=== PATIENT | male | born 1980 | race Caucasian/White ===

== ENCOUNTER 2016-07-01 13:43 | Emergency (ER) | payer OTHER ==
[~2016-07-01] VITALS: Ht 180.3 cm; Wt 90.0 kg
[~2016-07-01 13:43] MED LIST: PHEN12.5 PO; PREV30CA36 PO; Z.0.NO CURRENT MEDS
[2016-07-01] MEDS ORDERED: LORazepam 2 MG/ML VIAL IV PUSH ONE (14:00)
[2016-07-01] MEDS ORDERED: SODIUM CHLORIDE 0.9% FLUSH 5 ML FLUSH IVF PRN (14:00)
[2016-07-01 14:07] VITALS: O2SAT 100
[2016-07-01 14:09] VITALS: BP 150/98; PULSE 118; RESP 14; TEMP 98.4; O2SAT 98
[2016-07-01 14:15] LABS: AUTOMATED NEUTROPHIL # 3.9 TH/MM3 (1.8-7.7); BASOPHIL # 0.2 TH/MM3 (0-0.2); BASOPHIL % 2.5 % (0.0-2.0); EOSINOPHIL % 0.6 % (0.0-4.0); HEMATOCRIT 48.2 % (39.0-51.0); HEMO FLAGS DIFF FINAL; LYMPH % 29.9 % (9.0-44.0); MEAN CELL VOLUME 92.8 FL (80.0-100.0); MEAN CORPUSCULAR HEMOGLOBIN 31.6 PG (27.0-34.0); MEAN CORPUSCULAR HGB CONC 34.1 % (32.0-36.0); MONO % 8.5 % (0.0-8.0); NEUT % 58.5 % (16.0-70.0); PLATELET COUNT 253 TH/MM3 (150-450); RED CELL DISTRIBUTION WIDTH 12.8 % (11.6-17.2); WHITE BLOOD COUNT 6.7 TH/MM3 (4.0-11.0)
--- NOTE | 2016-07-01 14:19 | RADHPO ---
EXAM DATE/TIME: 07/01/2016 14:08 [place] COMPARISON: No previous studies available for comparison. INDICATIONS : Chest pain MEDICAL HISTORY : None. SURGICAL HISTORY : None. ENCOUNTER: Initial ACUITY: 3 days PAIN SCORE: 10/10 LOCATION: Bilateral chest FINDINGS: A single view of the chest demonstrates the lungs to be symmetrically aerated without evidence of mas s, infiltrate or effusion. The cardiomediastinal contours are unremarkable. Osseous structures are intact. CONCLUSION: No acute disease. Bismark Vail MD FACR on July 01, 2016 at 14:17 Board Certified Radiologist. This report was verified electronically.
[2016-07-01 14:25] VITALS: BP_SYST 147; BP_SYST 160; BP_DIAS 77; BP_DIAS 90
[2016-07-01 14:32] LABS: CHLORIDE 102 MEQ/L (98-107); SODIUM (NA) 139 MEQ/L (136-145)
[2016-07-01 14:36] LABS: ANION GAP 12 MEQ/L (5-15); BICARBONATE 25.5 MEQ/L (21.0-32.0); BLOOD UREA NITROGEN 9 MG/DL (7-18)
[2016-07-01 14:39] LABS: ALT (GPT) 117 U/L (12-78); AST (GOT) 65 U/L (15-37); GLOMERULAR FILTRATION RATE 89 ML/MIN (>89)
[2016-07-01 14:40] LABS: TOTAL BILIRUBIN ADULT 0.5 MG/DL (0.2-1.0)
[2016-07-01 14:42] LABS: ALKALINE PHOSPHATASE 16 U/L (45-117)
--- NOTE | 2016-07-01 15:13 | PD ---
HPI Chief Complaint: Chest Pain Time Seen by Provider: 13:51 Travel History International Travel<30 days: No Contact w/Intl Traveler<30days: No Traveled to known affect area: No History of Present Illness HPI This is a 35-year-old male who presents the emergency department with 2 weeks of intermittent chest pains described as sharp, all over the front of his chest , worse with movement and worse with laying down and going to sleep. He also reports he's been getting intermittent numbness and tingling. He reports that he gets numbness and tingling in the left lower extremity and sometimes in the right face and in the right arm. He says it comes and goes. He says this morning he most recently had some numbness in his right face but its gone away since then. He does smoke cigarettes. He denies any hypertension, hyperlipidemia or diabetes. He denies any cocaine use. He does drink alcohol daily. He said he didn't drink anything yesterday but did drink this morning. [facility] Past Medical History Medical History: Denies Significant Hx Diminished Hearing: No Tetanus Vaccination: > 5 Years Influenza Vaccination: No Past Surgical History Surgical History: No Previous Surgery Social History Alcohol Use: Yes (4-5 BEERS DAILY) Tobacco Use: Yes (1.5 PPD) Substance Use: No Allergies-Medications (Allergen,Severity, Reaction): Coded Allergies: Coconut (Verified Allergy, Severe, 07/01/16) Reported Meds & Prescriptions Reported Meds & Active Scripts Active No Active Prescriptions or Reported Medications Review of Systems Except as stated in HPI: all other systems reviewed are Neg Physical Exam Narrative GENERAL:Well appearing, no acute distress SKIN: Warm and dry. HEAD: Atraumatic. Normocephalic. EYES: Pupils equal and round. No injection or drainage. ENT: Moist mucous membranes NECK: Trachea midline. CARDIOVASCULAR: Tachycardic. No murmur appreciated. RESPIRATORY: Clear to auscultation. Breath sounds equal bilaterally. GASTROINTESTINAL: Abdomen soft, non-tender, nondistended. MUSCULOSKELETAL: No obvious deformities. NEUROLOGICAL: Awake and alert. No obvious cranial nerve deficits. Moving all extremities. PSYCHIATRIC: Appropriate mood and affect; insight and judgment normal. Data Data Last Documented VS Vital Signs Date Time Temp Pulse Resp B/P Pulse Ox O2 Delivery O2 Flow Rate FiO2 07/01/16 14:25 160/90 147/77 07/01/16 14:09 98.4 118 14 98 Room Air Orders Electrocardiogram (07/01/16 14:00) Complete Blood Count With Diff (07/01/16 14:00) Comprehensive Metabolic Panel (07/01/16 14:00) Troponin I (07/01/16 14:00) Chest, Single Ap (07/01/16 14:00) Ecg Monitoring (07/01/16 14:00) Bilateral Bp Monitoring (07/01/16 14:00) Iv Access Insert/Monitor (07/01/16 14:00) Oximetry (07/01/16 14:00) Oxygen Administration (07/01/16 14:00) Sodium Chloride 0.9% Flush (Ns Flush) (07/01/16 14:00) Lorazepam Inj (Ativan Inj) (07/01/16 14:00) Labs Laboratory Tests Test 07/01/16 14:10 White Blood Count 6.7 TH/MM3 Red Blood Count 5.20 MIL/MM3 Hemoglobin 16.4 GM/DL Hematocrit 48.2 % Mean Corpuscular Volume 92.8 FL Mean Corpuscular Hemoglobin 31.6 PG Mean Corpuscular Hemoglobin 34.1 % Concent Red Cell Distribution Width 12.8 % Platelet Count 253 TH/MM3 Mean Platelet Volume 7.6 FL Neutrophils (%) (Auto) 58.5 % Lymphocytes (%) (Auto) 29.9 % Monocytes (%) (Auto) 8.5 % Eosinophils (%) (Auto) 0.6 % Basophils (%) (Auto) 2.5 % Neutrophils # (Auto) 3.9 TH/MM3 Lymphocytes # (Auto) 2.0 TH/MM3 Monocytes # (Auto) 0.6 TH/MM3 Eosinophils # (Auto) 0.0 TH/MM3 Basophils # (Auto) 0.2 TH/MM3 CBC Comment DIFF FINAL Differential Comment Sodium Level 139 MEQ/L Potassium Level 4.0 MEQ/L Chloride Level 102 MEQ/L Carbon Dioxide Level 25.5 MEQ/L Anion Gap 12 MEQ/L Blood Urea Nitrogen 9 MG/DL Creatinine 0.97 MG/DL Estimat Glomerular Filtration 89 ML/MIN Rate Random Glucose 107 MG/DL Calcium Level 8.8 MG/DL Total Bilirubin 0.5 MG/DL Aspartate Amino Transf 65 U/L (AST/SGOT) Alanine Aminotransferase 117 U/L (ALT/SGPT) Alkaline Phosphatase 16 U/L Troponin I LESS THAN 0.02 NG/ML Total Protein 7.7 GM/DL Albumin 3.9 GM/DL MDM Medical Decision Making Medical Screen Exam Complete: Yes Emergency Medical Condition: Yes Interpretation(s) EKG: Sinus tachycardia with no ST changes No leukocytosis Mild transaminitis Troponin is normal Chest x-rays reassuring Differential Diagnosis Acute alcohol withdrawal, pericarditis, acute coronary syndrome, pneumothorax, aortic dissection Narrative Course This 35-year-old male who has a history of alcoholism who presents to the emergency department with atypical chest pain and intermittent numbness and tingling in multiple areas of his body. The numbness and tingling is nonanatomic. He was placed on a monitor and an IV was established. He was given a milligram of IV Ativan as he was tachycardic and hypertensive consistent with early alcohol withdrawal. Labs are obtained which were all reassuring including a normal troponin. His symptoms similar going on for 2 weeks so I don't suspect acute coronary syndrome or alternate emergent etiology of his symptoms. I considered aortic dissection but he has no objective neurologic deficit and his neurologic symptoms are migratory. I think he would be best served following up with a neurologist as an outpatient. Patient was counseled on alcohol abuse. He is discharged home. Diagnosis Primary Impression: Alcohol withdrawal Qualified Code: F10.230 - Alcohol withdrawal, uncomplicated Additional Impression: Atypical chest pain Patient Instructions: General Instructions Additional Instructions: If you develop severe chest pain, shortness of breath, sweating, lightheadedness , dizziness or difficulty breathing return to the emergency department immediately. Followup with your primary care physician in 2-3 days if your symptoms are not resolved. Follow up with Billy Elizalde in regards to psychiatric or substance related issues at: [address] [place] [id number] Med/Other Pt SpecificInfo: No Change to Meds Scripts No Active Prescriptions or Reported Meds Disposition: DISCHARGE HOME Condition: Stable Camila Escalante MD Jul 01, 2016 15:13
[2016-07-01 15:19] VITALS: BP 139/78; PULSE 114; RESP 14; O2SAT 96
--- NOTE | 2016-07-02 17:08 | EKG ---
Date Performed: 07/01/2016 Time Performed: 13:48:40 PTAGE: 35 years EKG: Sinus tachycardia Possible left atrial abnormality ST junctional depression is nonspecific Borderline ECG NO PREVIOUS TRACING DOCTOR: Tad Rice Interpretating Date/Time 07/02/2016 17:03:03
== END 2016-07-01 15:36 | disposition home or self-care (01) ==
LOC: PHED 13:43
DX: F10.239 Alcohol dependence with withdrawal, unspecified (principal); R07.89 Other chest pain; R20.0 Anesthesia of skin; R20.2 Paresthesia of skin; R00.0 Tachycardia, unspecified
CPT/HCPCS: 71010; 80053; 84484; 85025; 93005; 96374; 99285; J2060